=== PATIENT | male | born 1950 | race Caucasian/White ===

== ENCOUNTER 2021-05-14 19:06 | Emergency (ER) | payer OTHER, MEDICARE ==
[2021-05-14] MEDS ORDERED: Nitroglycerin 0.4 MG TAB 1 EACH ONE (19:30)
[2021-05-14] MEDS ORDERED: Metoprolol Tartrate 5 MG/5 ML VIAL ONE (19:30)
[2021-05-14 19:43] LABS: #Basophils 0.2 thou/uL (0.0-0.2); #Eosinphils 0.2 thou/uL (0.0-0.7); #Lymphocytes 1.6 thou/uL (1.20-3.40); #Monocytes 1.2 thou/uL (0.11-0.59); #Neutrophils 9.1 thou/uL (1.40-6.50); %Basophils 1.4 % (0.0-1.0); %Eosinophils 1.6 % (0.0-10.0); %Lymphocytes 13.4 % (21.0-51.0); %Monocytes 9.5 % (0.0-10.0); %Neutrophils 74.2 % (42.0-75.0); Hemoglobin 15.6 g/dL (14.0-18.0); Mean Corpuscular HGB CONC 34.1 g/dL (32.0-36.0); Mean Corpuscular Hemoglobin 31.4 pg (27.0-31.0); Mean Corpuscular Volume 92.3 fL (78.0-98.0); Mean Platelet Volume 8.4 fL (7.4-10.4); Platelet Count 250 thou/uL (130-400); RBC Distribution Width 11.7 % (11.5-14.5); Red Blood Cell (RBC) Count 4.97 mill/uL (4.70-6.10); White Blood Cell (WBC) Count 12.2 thou/uL (4.8-10.8)
[2021-05-14 19:50] LABS: Prothrombin Time 12.9 sec (12.0-14.7)
[2021-05-14 19:51] LABS: PTT 37.4 sec (22.9-36.1)
[2021-05-14 19:59] LABS: ALT (SGPT) 16 U/L (8-55); AST (SGOT) 20 U/L (5-34); Albumin 4.4 g/dL (3.4-4.8); Alkaline Phosphatase 69 U/L (40-110); Anion Gap 18 mmol/L (10-20); BUN (Urea Nitrogen) 19 mg/dL (8.4-25.7); Bilirubin, Total 0.9 mg/dL (0.2-1.2); Calc. Creatinine Clearance 0 mL/min (70-130); Calcium 9.6 mg/dL (7.8-10.44); Carbon Dioxide 21 mmol/L (23-31); Chloride 99 mmol/L (98-107); Globulin 3.5 g/dL (2.4-3.5); Glucose 105 mg/dL (80-115); Potassium 3.8 mmol/L (3.5-5.1); Protein, Total 7.9 g/dL (5.8-8.1); Sodium 134 mmol/L (136-145)
[2021-05-14] MEDS ORDERED: Enoxaparin Sodium 100 MG/ML SYRINGE ONE (20:26)
[2021-05-14] MEDS ORDERED: Morphine 4 MG/ML VIAL ONE (20:26)
== END 2021-05-14 21:00 | disposition short-term general hospital (02) ==
LOC: BURERS 19:06
DX: I21.4 Non-ST elevation (NSTEMI) myocardial infarction (principal); I10 Essential (primary) hypertension
CPT/HCPCS: 71045; 80053; 82553; 83880; 84484; 85025; 85610; 85730; 93005; 96372; 96374; 96375; J1650; J2270

== ENCOUNTER 2022-06-24 10:39 | Outpatient (CLI) | payer MEDICARE | END 2022-06-24 10:40 | disposition home or self-care (01) | LOC: BURRAD 10:39 | PROVIDERS: ATTEND Nurse Practitioner Family | DX: S46.911A Strain of unspecified muscle, fascia and tendon at shoulder and upper arm level, right arm, initial encounter (principal) ==